=== PATIENT | male | born 1955 | race Caucasian/White ===

== ENCOUNTER 2016-09-25 14:24 | Emergency (ER) | payer OTHER, MEDICAID ==
[~2016-09-25] VITALS: Ht 182.9 cm; Wt 99.8 kg
[~2016-09-25 14:24] MED LIST: DIT5 PO; DOCU-67 PO; LAM200 PO; LEVE250T2 PO; OMEP40EC1 PO; PB97.2 PO; RISP0.5T PO; TRAM50TA94 PO; [UNRECOGNIZED DRUG - CODE] PO
[2016-09-25 14:35] VITALS: BP 130/67
--- NOTE | 2016-09-25 18:13 | NUR ---
Patient to [facility].
--- NOTE | 2016-09-25 18:28 | NUR ---
Dr. harris evaluating patient.
--- NOTE | 2016-09-25 19:08 | NUR ---
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 PATIENT IS AWAKE AND ALERT, ABLE TO MAKE NEEDS KNOWN SEEN IN OVERFLOW BY DR. COBB.
[2016-09-25 19:09] LABS: BASOPHILS # (AUTO) 0.1 K/uL (0.00-0.22); BASOPHILS % (AUTO) 1.3 % (0.0-2.0); EOSINOPHILS # (AUTO) 0.1 K/uL (0-0.4); EOSINOPHILS % (AUTO) 1.7 % (0.0-4.0); HEMATOCRIT 42.3 % (36-52); HEMOGLOBIN 13.6 g/dL (12.0-18.0); LYMPHOCYTES # (AUTO) 0.9 K/uL (2.0-11.5); LYMPHOCYTES % (AUTO) 16.3 % (20.5-51.1); MEAN CORPUSCULAR HEMOGLOBIN 30 pg (27-31); MEAN CORPUSCULAR HGB CONC 32 g/dL (33-37); MEAN CORPUSCULAR VOLUME 93 fL (80-94); MONOCYTES # (AUTO) 0.5 K/uL (0.8-1.0); MONOCYTES % (AUTO) 8.4 % (1.7-9.3); NEUTROPHILS # (AUTO) 4.2 K/uL (1.8-7.7); NEUTROPHILS % (AUTO) 72.3 % (42.2-75.2); PLATELET COUNT (AUTO) 143 K/uL (140-450); RED BLOOD CELL COUNT(AUTO) 4.57 MIL/uL (4.20-6.10); RED CELL DISTRIBUTION WIDTH 15.9 % (11.6-13.7); WHITE BLOOD COUNT (AUTO) 5.8 K/uL (4.8-10.8)
[2016-09-25 19:21] LABS: ANION GAP 10.9 (8-16); CALCIUM 9.2 mg/dL (8.5-10.1); CARBON DIOXIDE 32.2 mmol/L (21-32); CREATININE 1.1 mg/dL (0.6-1.3); POTASSIUM 4.1 mmol/L (3.5-5.1)
[2016-09-25 19:25] LABS: INR 1.1 (0.8-1.2); PARTIAL THROMBOPLASTIN TIME 28.5 secs (22-35.6); PROTHROMBIN TIME 11.2 secs (10.8-13.4)
[2016-09-25 19:27] LABS: ALBUMIN 3.2 g/dL (3.4-5.0); TOTAL BILIRUBIN 0.2 mg/dL (0.0-1.0); TOTAL PROTEIN, SERUM 8.9 g/dL (6.4-8.2)
[2016-09-25 20:16] VITALS: BP 119/72
--- NOTE | 2016-09-25 20:17 | NUR ---
Patient discharged with v/s stable. Written and verbal after care instructions given and explained. Patient alert, oriented and verbalized understanding of instructions. Wheel Chair Assisted with by caregiver. All questions addressed prior to discharge. ID band removed. Patient advised to follow up with PMD. Rx of ULTRAM AND CIPRO given. Patient educated on indication of medication including possible reaction and side effects. Opportunity to ask questions provided and answered.
== END 2016-09-25 20:16 | disposition home or self-care (01) ==
LOC: MED 14:24
DX: R18.8 Other ascites (principal); K74.60 Unspecified cirrhosis of liver; R19.7 Diarrhea, unspecified; J45.909 Unspecified asthma, uncomplicated
CPT/HCPCS: 36415; 80053; 85025; 85610; 85730; 99285

== ENCOUNTER 2016-11-05 16:15 | Emergency (ER) | payer OTHER, MEDICAID ==
[~2016-11-05] VITALS: Ht 190.5 cm; Wt 88.9 kg
[2016-11-05 16:22] VITALS: BP 118/81
[2016-11-05] MEDS ORDERED: HYDROcodone/APAP 5/325 MG 1 TAB TAB PO ONE (16:45)
[2016-11-05 17:50] VITALS: BP 118/81
== END 2016-11-05 17:50 | disposition home or self-care (01) ==
LOC: MED 16:15
DX: S42.031A Displaced fracture of lateral end of right clavicle, initial encounter for closed fracture (principal); G40.909 Epilepsy, unspecified, not intractable, without status epilepticus; Z85.9 Personal history of malignant neoplasm, unspecified; W05.0XXA Fall from non-moving wheelchair, initial encounter; Y93.89 Activity, other specified; Y92.89 Other specified places as the place of occurrence of the external cause; Y99.8 Other external cause status
CPT/HCPCS: 73030; 99284

== ENCOUNTER 2017-01-15 13:03 | Outpatient (CLI) | payer OTHER, MEDICAID ==
[~2017-01-15 13:03] MED LIST changes: +ATRO1TAB60 PO; +DOCU-299 PO; -DOCU-67 PO; -RISP0.5T PO; +RISP0.5T3 PO; +TRAM50TA1 PO; -TRAM50TA94 PO; -[UNRECOGNIZED DRUG - CODE] PO
== END 2017-01-15 20:07 | disposition home or self-care (01) ==
LOC: MRD 13:03
PROVIDERS: ATTEND Family Medicine
DX: S42.001D Fracture of unspecified part of right clavicle, subsequent encounter for fracture with routine healing (principal); X58.XXXD Exposure to other specified factors, subsequent encounter
CPT/HCPCS: 73000

== ENCOUNTER 2021-03-09 16:10 | Emergency (ER) | payer OTHER, MEDICAID ==
[~2021-03-09] VITALS: Ht 190.5 cm; Wt 90.7 kg
[~2021-03-09 16:10] MED LIST changes: -OMEP40EC1 PO; +OMEP40EC24 PO
[2021-03-09 16:18] VITALS: BP 135/98
--- NOTE | 2021-03-09 16:26 | NUR ---
PT W/C ASSISSTED TO BED
--- NOTE | 2021-03-09 16:38 | NUR ---
65 Y/O MALE BIB CAREGIVER FROM [facility] C/O FALL EARLIER TODAY. PT C/O HEAD PAIN 09/21 DESCRIBES ACHING NON-RADIATING. PT DENIES LOC. DENIES FEVER/CHILLS. DENIES N/V/D. PMH: EPILEPSY ALLERGIES: PENICILLIN, ASPIRIN, CEPHALOSPORIN
--- NOTE | 2021-03-09 17:07 | NUR ---
DR. ZAMORA AT PT BEDSIDE FOR FURTHER EVALUATION.
--- NOTE | 2021-03-09 17:28 | NUR ---
PT TAKEN TO CT VIA W/C.
--- NOTE | 2021-03-09 17:38 | NUR ---
PT TAKEN TO ER BED 3 VIA W/C.
[2021-03-09 18:24] VITALS: BP 135/98
--- NOTE | 2021-03-09 18:24 | NUR ---
Patient discharged with v/s stable. Written and verbal after care instructions given FOR HEAD INJURY and explained. Patient verbalized understanding. Wheel Chair Assisted with by caregiver. All questions addressed prior to discharge. Advised to follow up with PMD.
== END 2021-03-09 18:24 | disposition home or self-care (01) ==
LOC: MED 16:10
DX: S09.90XA Unspecified injury of head, initial encounter (principal); J45.909 Unspecified asthma, uncomplicated; Z88.0 Allergy status to penicillin; Z88.6 Allergy status to analgesic agent; Z85.038 Personal history of other malignant neoplasm of large intestine; Z79.899 Other long term (current) drug therapy; W19.XXXA Unspecified fall, initial encounter; Y93.89 Activity, other specified; Y92.89 Other specified places as the place of occurrence of the external cause; Y99.8 Other external cause status
CPT/HCPCS: 70450; 99284

== ENCOUNTER 2022-01-05 09:35 | Emergency (ER) | payer OTHER, MEDICAID ==
[~2022-01-05] VITALS: Ht 185.4 cm; Wt 89.8 kg
[2022-01-05 10:01] VITALS: BP 119/67
--- NOTE | 2022-01-05 10:08 | NUR ---
pt w/c assisted to bed 10.
--- NOTE | 2022-01-05 10:50 | NUR ---
Patient being evaluated by dr Fierro at bedside.
[2022-01-05] MEDS ORDERED: CEFEPIME 1,000 MG in DEXTROSE 5% 50 ML IV ONE (10:55)
[2022-01-05] MEDS ORDERED: ALBUTEROL SULFATE/IPRATROPIU 3 ML SOL IH ONE (11:00)
[2022-01-05] MEDS ORDERED: LEVOFLOXACIN 750 MG/D5W PREMIX 150 ML IV ONE (11:05)
--- NOTE | 2022-01-05 11:08 | NUR ---
x ray bed side
[2022-01-05 11:44] LABS: BASOPHILS % (AUTO) 0.4 % (0.0-2.0); EOSINOPHILS # (AUTO) 0.1 K/uL (0-0.4); EOSINOPHILS % (AUTO) 2.9 % (0.0-4.0); HEMATOCRIT 41.7 % (36-52); LYMPHOCYTES # (AUTO) 0.5 K/uL (2.0-11.5); LYMPHOCYTES % (AUTO) 11.1 % (20.5-51.1); MEAN CORPUSCULAR HEMOGLOBIN 32 pg (27-31); MEAN CORPUSCULAR HGB CONC 34 g/dL (33-37); MEAN CORPUSCULAR VOLUME 95.8 fL (80-94); MONOCYTES # (AUTO) 0.6 K/uL (0.8-1.0); MONOCYTES % (AUTO) 14.8 % (1.7-9.3); NEUTROPHILS % (AUTO) 70.8 % (42.2-75.2); PLATELET COUNT (AUTO) 186 K/uL (140-450); RED BLOOD CELL COUNT(AUTO) 4.36 MIL/uL (4.20-6.10); RED CELL DISTRIBUTION WIDTH 16.8 % (11.6-13.7); WHITE BLOOD COUNT (AUTO) 4.3 K/uL (4.8-10.8)
[2022-01-05 12:02] LABS: ALBUMIN 2.4 g/dL (3.4-5.0); ANION GAP 10.1 (8-16); CARBON DIOXIDE 30.5 mmol/L (21-32); CREATININE 0.7 mg/dL (0.6-1.3); POTASSIUM 4.6 mmol/L (3.5-5.1); TOTAL BILIRUBIN 0.5 mg/dL (0.0-1.0)
[2022-01-05] MEDS ORDERED: DOXY-690 PO (13:01)
--- NOTE | 2022-01-05 13:02 | NUR ---
Patient's nursing home called, spoke with Carlos who is the primary nurse. Carlos asked if patient would be admitted but was told that patient would not be admitted at this time. Was asked for pharmacy information but Carlos stated that nursing home uses specialty pharmacy and written prescription would be prefered. Number called, . made aware for discharge orders RX.
[2022-01-05 13:19] VITALS: BP 99/65
--- NOTE | 2022-01-08 11:16 | NUR ---
LATE ENTRY- LEVAQUIN DISCONTINUED AT 1302.
== END 2022-01-05 13:20 | disposition home or self-care (01) ==
LOC: MED 09:35
DX: J18.9 Pneumonia, unspecified organism (principal); Z20.822 Contact with and (suspected) exposure to COVID-19; J45.909 Unspecified asthma, uncomplicated; Z86.69 Personal history of other diseases of the nervous system and sense organs; Z98.890 Other specified postprocedural states; Z85.038 Personal history of other malignant neoplasm of large intestine; Z79.899 Other long term (current) drug therapy; Z79.891 Long term (current) use of opiate analgesic; Z79.2 Long term (current) use of antibiotics; Z88.1 Allergy status to other antibiotic agents; Z91.010 Allergy to peanuts; Z91.018 Allergy to other foods; Z88.0 Allergy status to penicillin; Z88.6 Allergy status to analgesic agent
CPT/HCPCS: 36415; 71045; 80053; 83605; 83880; 84484; 85025; 87040; 87426; 93005; 94640; 96365; 99285; J1956

== ENCOUNTER 2022-01-11 18:24 | Emergency (ER) | payer OTHER, MEDICAID ==
[~2022-01-11] VITALS: Ht 177.8 cm; Wt 99.8 kg
[~2022-01-11 18:24] MED LIST changes: +DOXY-690 PO
[2022-01-11 18:40] VITALS: BP 138/78
--- NOTE | 2022-01-11 18:47 | NUR ---
PT BIB CAREGIVER C/O URINARY RENENTION SINCE THIS AM. PT DENIES ANY PAIN OR DISCOMFORT
--- NOTE | 2022-01-11 20:30 | NUR ---
BLADDER SCANNER ON PT >1000ML. ROLY MCKEON AWARE.
--- NOTE | 2022-01-11 21:07 | NUR ---
PERICARE PROVIDED FOR PATIENT. PT HAD SOLIDIFIED BM AND WET DIAPER. PT CHANGED. PT TOLERATED WELL.
[2022-01-11] MEDS ORDERED: CIPR500T4 PO (21:30)
--- NOTE | 2022-01-11 21:40 | NUR ---
APPLIED LEG BAG TO PATIENT. PATIENT TOLERATED WELL.
[2022-01-11 21:50] VITALS: BP 138/78
--- NOTE | 2022-01-11 21:50 | NUR ---
Patient discharged. Written and verbal after care instructions given and explained indwelling urinary catheter, urinary tract infection, and acute urinary retention. Patient alert, oriented and verbalized understanding of instructions. Wheel Chair Assisted by caregiver. All questions addressed prior to discharge. ID band removed. Patient advised to follow up with PMD. Rx of Cipro given. Patient educated on indication of medication including possible reaction and side effects. Opportunity to ask questions provided and answered.
--- NOTE | 2022-01-11 22:06 | NUR ---
Dariela sommers in [place] - 01/12/22 at 0109 by EDGAR APPLIED LEG BAG TO PATIENT. PATIENT TOLERATED WELL.
== END 2022-01-11 21:50 | disposition home or self-care (01) ==
LOC: MED 18:24
DX: N30.00 Acute cystitis without hematuria (principal); R33.9 Retention of urine, unspecified; J45.909 Unspecified asthma, uncomplicated; Z88.0 Allergy status to penicillin; Z88.6 Allergy status to analgesic agent; Z79.899 Other long term (current) drug therapy; Z85.9 Personal history of malignant neoplasm, unspecified
CPT/HCPCS: 51702; 81002; 99284

== ENCOUNTER 2022-04-07 13:55 | Emergency (ER) | payer OTHER, MEDICAID ==
[~2022-04-07] VITALS: Ht 177.8 cm; Wt 99.8 kg
[~2022-04-07 13:55] MED LIST changes: +CIPR500T4 PO; -DIT5 PO; +OXYB5TAB44 PO; +TRAM-748 PO; -TRAM50TA1 PO
[2022-04-07 14:06] VITALS: BP 116/72
--- NOTE | 2022-04-07 14:19 | NUR ---
PT WAS W/C'D TO ROOM 2.
--- NOTE | 2022-04-07 14:51 | NUR ---
PT WAS PUT ON BED, HOSPITAL GOWN ON, WAITING FOR CT.
[2022-04-07 16:11] VITALS: BP 114/75
--- NOTE | 2022-04-07 16:11 | NUR ---
CT DONE NEGATIVE. Patient discharged with v/s stable. Written and verbal after care instructions given and explained. Patient verbalized understanding. Wheel Chair Assisted with by caregiver. All questions addressed prior to discharge. Advised to follow up with PMD.
== END 2022-04-07 16:11 | disposition home or self-care (01) ==
LOC: MED 13:55
DX: S09.90XA Unspecified injury of head, initial encounter (principal); J45.909 Unspecified asthma, uncomplicated; K21.9 Gastro-esophageal reflux disease without esophagitis; Z79.899 Other long term (current) drug therapy; Z85.9 Personal history of malignant neoplasm, unspecified; Z88.0 Allergy status to penicillin; Z88.6 Allergy status to analgesic agent; W19.XXXA Unspecified fall, initial encounter; Y93.89 Activity, other specified; Y92.89 Other specified places as the place of occurrence of the external cause; Y99.8 Other external cause status
CPT/HCPCS: 70450; 99284